=== PATIENT | male | born 1990 | race Asian ===

== ENCOUNTER 2020-09-02 13:31 | Emergency (ER) | payer BC ==
[~2020-09-02] VITALS: Ht 165.1 cm; Wt 68.0 kg
[2020-09-02 14:01] VITALS: BP 151/92; Ht 165.1 cm; Wt 68.0 kg
== END 2020-09-02 15:51 | disposition home or self-care (01) ==
LOC: ED 13:31
DX: S01.85XA Open bite of other part of head, initial encounter (principal); W54.0XXA Bitten by dog, initial encounter; Y93.89 Activity, other specified; Y92.89 Other specified places as the place of occurrence of the external cause; Y99.8 Other external cause status
CPT/HCPCS: 90715